=== PATIENT | female | born 1980 | race Caucasian/White ===

== ENCOUNTER 2017-07-30 16:15 | Inpatient (IN) | payer OTHER ==
[2017-07-30] MEDS: LACTATED RINGER'S 1,000 ML IV ×2 (17:24→20:46)
[2017-07-30] MEDS ORDERED: CARBOPROST 250 MCG INJ IM ×2 (17:30→23:30)
[2017-07-30] MEDS ORDERED: METHYLERGONOVINE 0.2 MG INJ IM ×2 (17:30→23:30)
[2017-07-30] MEDS ORDERED: OXYTOCIN 30 UNITS/LR 500 ML IV ×2 (17:30→23:30)
[2017-07-30] MEDS ORDERED: MISOPROSTOL 200 MCG TAB PR ×2 (17:30→23:30)
[2017-07-30] MEDS ORDERED: CEFAZOLIN 2 GM/50 ML (PMX) 50 ML IV (17:30)
[2017-07-30 17:36] LABS: ADD MAN DIFF? NO
[2017-07-30 17:39] LABS: BASOPHILS % 0.3 % (0.0-2.0); EOSINOPHILS # 0.1 10^3/ul (0.0-0.5); EOSINOPHILS % 1.6 % (0.0-7.0); HEMATOCRIT 37.3 % (37.0-47.0); LYMPHOCYTES # 1.2 10^3/ul (0.8-2.9); MEAN CORPUSCULAR HEMOGLOBIN 29.6 pg (29.0-33.0); MEAN CORPUSCULAR HGB CONC 32.2 g/dl (32.0-37.0); MEAN CORPUSCULAR VOLUME 91.9 fl (82.0-101.0); MEAN PLATELET VOLUME 12.4 fl (7.4-10.4); MONOCYTE # 0.6 10^3/ul (0.3-0.9); MONOCYTES % 8.1 % (0.0-11.0); NEUTROPHIL # 5.2 10^3/ul (1.6-7.5); NEUTROPHILS % 71.6 % (39.0-77.0); PLATELET COUNT 123 10^3/UL (140-415); RED BLOOD COUNT 4.06 10^6/ul (4.20-5.40); RED CELL DISTRIBUTION WIDTH 14.8 % (11.5-14.5)
[2017-07-30 17:39] LABS: WHITE BLOOD COUNT 7.3 10^3/ul (4.8-10.8)
[2017-07-30] MEDS: CITRIC ACID/SODIUM CITRATE 15 ML CUP PO (18:06)
[2017-07-30] MEDS: ONDANSETRON 4 MG INJ IV ×2 (18:06→20:33)
[2017-07-30 18:15] LABS: INR 0.97
[2017-07-30 18:16] LABS: PARTIAL THROMBOPLASTIN TIME 28.8 Sec (25.0-35.0)
[2017-07-30 18:28] LABS: HEPATITIS B SURFACE ANTIGEN NEGATIVE (NEGATIVE)
[2017-07-30] MEDS ORDERED: FENTAnyl 50 MCG/ML VIAL (18:37)
[2017-07-30] MEDS ORDERED: OXYTOCIN 10 UNIT INJ (18:37)
[2017-07-30] MEDS ORDERED: morphine SULFATE/PF (10 MG/10 ML) INJ (18:37)
[2017-07-30] MEDS ORDERED: PHENYLephrine (100 MCG/ML) 5ML SYG (18:37)
[2017-07-30] MEDS ORDERED: METOCLOPRAMIDE 10 MG INJ (18:37)
[2017-07-30] MEDS ORDERED: BUPIVACAINE 0.75%/DEXT (SPINAL) 2 ML INJ (18:38)
[2017-07-30] MEDS ORDERED: MEPERIDINE 25 MG INJ IV (19:30)
[2017-07-30] MEDS ORDERED: MIDAZOLAM 1 MG/ML 2 ML INJ IV (19:30)
[2017-07-30] MEDS ORDERED: FENTAnyl 50 MCG/ML VIAL IV ×3 (19:30)
[2017-07-30] MEDS ORDERED: hydrALAzine 20 MG INJ IV (19:30)
[2017-07-30] MEDS ORDERED: morphine 2 MG INJ IV ×2 (19:30)
[2017-07-30] MEDS ORDERED: TRIMETHOBENZAMIDE 100 MG/ML VIAL IM ×2 (19:30)
[2017-07-30] MEDS ORDERED: HYDROmorphONE (0.2 MG/ML) 10ML SYG IV ×3 (19:30)
[2017-07-30] MEDS ORDERED: OXYCODONE/ACETAMINOPHEN (5/325) TAB PO ×2 (19:30)
[2017-07-30] MEDS ORDERED: ALBUTEROL 0.083% (NEB) 2.5 MG/3 ML AMP HHN (19:30)
[2017-07-30] MEDS ORDERED: IPRATROPIUM (NEB) 0.5 MG/2.5 ML AMP HHN (19:30)
[2017-07-30] MEDS ORDERED: NALBUPHINE HCL (10 MG/1 ML) INJ IV (19:30)
[2017-07-30] MEDS ORDERED: DIPHENHYDRAMINE 50 MG INJ IV ×2 (19:30)
[2017-07-30] MEDS ORDERED: NALOXONE (0.4 MG/ML) INJ IV (19:30)
[2017-07-30] MEDS ORDERED: EPHEDrine SULFATE 50 MG/5 ML SYG IV (19:30)
[2017-07-30] MEDS ORDERED: ONDANSETRON 4 MG INJ IV ×2 (19:30→23:30)
[2017-07-30] MEDS ORDERED: LABETALOL HCL 20MG INJ IV (19:30)
[2017-07-30] MEDS: OXYTOCIN 30 UNITS/LR 500 ML IV (20:55)
[2017-07-30 23:14] LABS: RAPID PLASMA REAGIN NONREACTIVE (NR)
[2017-07-30] MEDS ORDERED: ZOLPIDEM 5 MG TAB PO (23:30)
[2017-07-30] MEDS ORDERED: LANOLIN 7 GM TUBE TOP (23:30)
[2017-07-31] MEDS: OXYTOCIN 30 UNITS/LR 500 ML IV ×5 (01:00→17:00)
[2017-07-31] MEDS: LACTATED RINGER'S 1,000 ML IV ×4 (02:23→23:17)
[2017-07-31 07:35] LABS: ADD MAN DIFF? NO
[2017-07-31 07:44] LABS: BASOPHILS % 0.2 % (0.0-2.0); EOSINOPHILS # 0.1 10^3/ul (0.0-0.5); EOSINOPHILS % 0.6 % (0.0-7.0); HEMATOCRIT 32.6 % (37.0-47.0); HEMOGLOBIN 10.7 g/dl (12.0-16.0); LYMPHOCYTES % 10.8 % (15.0-51.0); MEAN CORPUSCULAR HEMOGLOBIN 30.2 pg (29.0-33.0); MEAN CORPUSCULAR HGB CONC 32.8 g/dl (32.0-37.0); MEAN CORPUSCULAR VOLUME 92.1 fl (82.0-101.0); MONOCYTE # 0.5 10^3/ul (0.3-0.9); MONOCYTES % 5.5 % (0.0-11.0); NEUTROPHIL # 7.4 10^3/ul (1.6-7.5); NEUTROPHILS % 82.1 % (39.0-77.0); PLATELET COUNT 109 10^3/UL (140-415); RED BLOOD COUNT 3.54 10^6/ul (4.20-5.40); RED CELL DISTRIBUTION WIDTH 14.8 % (11.5-14.5)
[2017-07-31] MEDS: KETOROLAC 30 MG INJ IV ×2 (08:36→18:03)
[2017-07-31] MEDS ORDERED: ONDANSETRON 4 MG INJ IV (18:37)
[2017-07-31] MEDS ORDERED: DIPHENHYDRAMINE 50 MG INJ IV (18:37)
[2017-07-31] MEDS: SENNA/DOCUSATE NA (8.6MG/50MG) TAB PO (20:09)
[2017-07-31] MEDS: OXYCODONE/ACETAMINOPHEN (5/325) TAB PO (20:09)
[2017-07-31] MEDS: IBUPROFEN 600 MG TAB PO (23:40)
[2017-08-01] MEDS: OXYTOCIN 30 UNITS/LR 500 ML IV ×3 (00:10→05:00)
[2017-08-01] MEDS: IBUPROFEN 600 MG TAB PO ×3 (06:27→17:40)
[2017-08-01] MEDS: SENNA/DOCUSATE NA (8.6MG/50MG) TAB PO ×2 (09:20→21:30)
[2017-08-01] MEDS: OXYCODONE/ACETAMINOPHEN (5/325) TAB PO (19:36)
[2017-08-02] MEDS: IBUPROFEN 600 MG TAB PO ×3 (00:38→12:20)
[2017-08-02] MEDS: LACTATED RINGER'S 1,000 ML IV ×5 (00:53→13:12)
[2017-08-02] MEDS: OXYTOCIN 30 UNITS/LR 500 ML IV ×9 (00:53→13:12)
[2017-08-02] MEDS: DIPHTH/TET/ACEL PERTUSS (ADULT) 0.5 ML VIAL IM* (09:00)
[2017-08-02] MEDS: SENNA/DOCUSATE NA (8.6MG/50MG) TAB PO (12:21)
== END 2017-08-02 17:35 | disposition home or self-care (01) | DRG 766 ==
LOC: OBT 16:15 → L-D 16:16 → OBT 16:59 → L-D 17:01 → PP1 22:55
PROVIDERS: Obstetrics & Gynecology
PROC: 10D00Z1 Extraction of Products of Conception, Low, Open Approach (ICD-10-PCS; principal; 2017-07-30 19:00)
DX: O34.211 Maternal care for low transverse scar from previous cesarean delivery (principal); Z3A.38 38 weeks gestation of pregnancy; Z37.0 Single live birth
CPT/HCPCS: 85025; 85610; 85730; 86592; 86850; 86900; 86901; 87340; 99464